=== PATIENT | male | born 1950 | race Caucasian/White ===

== ENCOUNTER → 2022-05-21 | Outpatient (CLI) | payer SELFPAY ==
--- NOTE | 2022-05-21 09:56 | MR ---
EXAMINATION TYPE: MR angio head wo con DATE OF EXAM: 05/21/2022 COMPARISON: NONE HISTORY: Headache, neck pain TECHNIQUE: Time of flight images focusing on the [place] were performed without contrast.. 2-D and 3-D postprocessing imaging is performed on independent workstation. 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 Dominant left vertebral art madonna fills the basilar artery. Slight cylindrical prominence or beading along course of the basilar ar torrie is seen with areas of increased and decreased diameter. Hypoplastic bilateral posterior communic ating arteries. Patent anterior communicating artery. No significant focal stenosis or aneurysm in th e anterior circulation. No aneurysm in the bilateral posterior cerebral arteries. IMPRESSION: No aneurysm at the level of the [place]. Suspect occluded versus hypoplastic rig ht vertebral artery. Slight beaded appearance to the basilar artery with areas of alternating increas ed and decreased diameter could reflect product of a vasculitis. Correlate clinically.
--- NOTE | 2022-05-21 10:10 | MR ---
EXAMINATION TYPE: MR brain wo/w con DATE OF EXAM: 05/21/2022 COMPARISON: NONE HISTORY: Headache, neck pain TECHNIQUE: Multiplanar, multisequence images of the brain and brainstem is performed without and with IV contras t, utilizing 11 mL intravenous Gadavist . FINDINGS: Slightly suboptimal study with motion artifact degradation Diffusion weighted images demons trate no evidence of a recent infarct or other diffusion abnormality. There is mild to moderate vent ricular and sulcal prominence. There are focal and confluent areas of T2 hyperintensity seen througho ut the deep and periventricular white matter. Lesions are nonspecific in appearance and distribution. T2 Star-weighted images show punctate foci throughout the peripheral cortex bilaterally distinct fro m vessels suspicious for old blood product. Midline structures demonstrate normal morphology. The craniocervical junction appears within normal limits. Post contrast images demonstrate no abnormal enhancement. The dural venous sinuses appear pa tent. A few mucous retention cysts and/or polyps in the inferior bilateral maxillary sinuses are pres ent otherwise the paranasal sinuses are clear. Globes are intact bilaterally. IMPRESSION: Mild to moderate diffuse cerebral atrophy and nonspecific white matter changes may be at least partially related to altered vascular mechanics related to product of migraine headaches. Other etiologies not excluded. Suspicion for old diffuse axonal injury. No abnormal enhancement noted.
== END | disposition home or self-care (01) ==
LOC: RADMRIMAIN 08:52 → EDBD 08:52
PROVIDERS: ATTEND Family Medicine
DX: M54.2 Cervicalgia (principal); R51.9 Headache, unspecified
CPT/HCPCS: 70544; 70553; A9585